=== PATIENT | male | born 1980 ===

== ENCOUNTER → 2021-04-22 | Outpatient (CLI) | payer BC ==
[2021-04-23 08:11] LABS: A/G RATIO 1.9 (1.2-2.2); ALKALINE PHOSPHATASE, S 40 IU/L (44-121); ALT (SGPT) 20 IU/L (0-44); AST (SGOT) 18 IU/L (0-40); BASO (ABSOLUTE) 0.1 x10E3/uL (0.0-0.2); BASOS 1 % (Not Estab.); BILIRUBIN, TOTAL 0.7 mg/dL (0.0-1.2); BUN 13 mg/dL (6-24); BUN/CREATININE RATIO 16 (9-20); CALCIUM, SERUM 9.2 mg/dL (8.7-10.2); CARBON DIOXIDE, TOTAL 24 mmol/L (20-29); CHLORIDE, SERUM 100 mmol/L (96-106); CHOLESTEROL, TOTAL 199 mg/dL (100-199); CREATININE, SERUM 0.82 mg/dL (0.76-1.27); EGFR IF AFRICN AM 126 (>59); EGFR IF NONAFRICN AM 109 (>59); EOS 2 % (Not Estab.); EOS (ABSOLUTE) 0.1 x10E3/uL (0.0-0.4); GLOBULIN, TOTAL 2.4 g/dL (1.5-4.5); GLUCOSE, SERUM 112 mg/dL (65-99); HDL CHOLESTEROL 35 mg/dL (>39); HEMATOCRIT 50.6 % (37.5-51.0); HEMOGLOBIN 17.1 g/dL (13.0-17.7); IMMATURE GRANULOCYTES 0 % (Not Estab.); LDL CHOLESTEROL CALC 142 mg/dL (0-99); LYMPHS 21 % (Not Estab.); LYMPHS (ABSOLUTE) 1.3 x10E3/uL (0.7-3.1); MCH 28.8 pg (26.6-33.0); MCHC 33.8 g/dL (31.5-35.7); MCV 85 fL (79-97); MONOCYTES 7 % (Not Estab.); MONOCYTES(ABSOLUTE) 0.4 x10E3/uL (0.1-0.9); NEUTROPHILS 69 % (Not Estab.); NEUTROPHILS (ABSOLUTE) 4.4 x10E3/uL (1.4-7.0); PLATELETS 257 x10E3/uL (150-450); POTASSIUM, SERUM 4.9 mmol/L (3.5-5.2); RBC 5.94 x10E6/uL (4.14-5.80); RDW 12.3 % (11.6-15.4); SODIUM, SERUM 135 mmol/L (134-144); TRIGLYCERIDES 122 mg/dL (0-149); VLDL CHOLESTEROL CAL 22 mg/dL (5-40); WBC 6.3 x10E3/uL (3.4-10.8)
== END ==
LOC: LAB SHORT 16:44
PROVIDERS: Nurse Practitioner Family
DX: E11.9 Type 2 diabetes mellitus without complications (principal); Z68.42 Body mass index [BMI] 45.0-49.9, adult
CPT/HCPCS: 80053; 80061; 82043; 85025